=== PATIENT | male | born 1965 | race Caucasian/White ===

== ENCOUNTER 2022-11-03 12:47 | Emergency (ER) | payer MEDICARE, OTHER ==
[~2022-11-03] VITALS: Ht 167.6 cm; Wt 43.2 kg
[2022-11-03 12:56] VITALS: TEMP 98.3
[2022-11-03] MEDS ORDERED: PEG 3350/NA SULF,BICARB,CL/KCL 4000 ML SOLUTION PO ONE (13:45)
[2022-11-03 14:27] VITALS: BP 111/82; PULSE 96; RESP 18
== END 2022-11-03 14:46 | disposition home or self-care (01) ==
LOC: EMS 12:47
DX: K59.00 Constipation, unspecified (principal); F41.9 Anxiety disorder, unspecified; F32.A Depression, unspecified
CPT/HCPCS: 99283